=== PATIENT | female | born 1970 | race Hispanic/Latino ===

== ENCOUNTER 2017-02-16 13:33 | Outpatient (CLI) | payer BC ==
--- NOTE | 2017-02-16 15:55 | Fluoroscopy Report ---
UPPER GI SERIES WITH AIR-CONTRAST History: Epigastric pain Findings: Precast Molder film of the abdomen is unremarkable. A lap band appears in adequate position. The alpha angle of the spine and lap band is approximately 50 degrees. Deglutition is normal. There is no evidence for aspiration. No esophageal mass or mucosal defect is appreciated. There was however significant delay in passage of the thin barium oral contrast through the stoma of the lap band. The small gastric pouch appears mildly dilated in my opinion. The lap band has a more horizontal appearance on the fluoroscopic images while the patient was drinking. There appeared to be some level of obstruction at level of the lap band. At this point the patient was given air contrast and overhead images were obtained which demonstrated the lap band in a normal position. The remainder of the stomach has normal mucosal pattern. Duodenal bulb and duodenal sweep are within normal limits. Impression: Slightly abnormal study. I suspect intermittent posterior slippage of the lap band could be present. Please see above.
== END 2017-02-16 13:34 | disposition home or self-care (01) ==
LOC: FLUORO 13:33
PROVIDERS: ATTEND Specialist
DX: R10.13 Epigastric pain (principal)
CPT/HCPCS: 74247